=== PATIENT | male | born 1955 | race Caucasian/White ===

== ENCOUNTER 2019-09-17 09:43 | Inpatient (IN) | payer OTHER, SELFPAY ==
[2019-09-13 08:39] VITALS: BMI 33.4
[2019-09-17] VITALS (15 sets, daily range): BP systolic 100–132; BP diastolic 60–92; PULSE 66–103; RESP 9–19; TEMP 36.3–37.1; O2SAT 93–100; BMI 33.4
--- NOTE | 2019-09-17 | DI.RAD.S_ITS ---
PROCEDURE: XR LUMBAR SPINE 2-3V INDICATIONS: L4-5 TLIF TECHNIQUE: 2 intraoperative views of the lumbar spine were acquired. COMPARISON: Lumbar spine radiographs 07/12/2019. FINDINGS: Pedicle screws at L4 and L5 with intervertebral body spacer are in the expected location. IMPRESSION: Expected location of the L4-L5 pedicle screws. Dictated by: Matty Rodrigez M.D. on 09/17/2019 at 14:52 Approved by: Matty Rodrigez M.D. on 09/17/2019 at 14:53
[2019-09-17] MEDS: LACTATED RINGERS 1,000 ML 42 ML IV ×2 (10:27→13:53)
--- NOTE | 2019-09-17 11:27 | PM.PREOP ---
Pre-operative Note Interval Note History & Physical reviewed/Exam performed by Physician: Yes Changes to H&P: No
[2019-09-17] MEDS: CEFAZOLIN 2 GM/100 ML FROZ.PIGGY IV ×2 (12:04→20:40)
--- NOTE | 2019-09-17 12:52 | SUR.OPER ---
Prone on spine table, head in foam head support, padded chest and pelvic supports, gel pad at knees, lower legs supported by pillows; nipples, genitalia and toes free of pressure, arms secured on foam padded arm boards at <90 degrees abduction. Tape over blanket at thigh secured to table.
[2019-09-17] MEDS: BUPIVACAINE 0.25% W/ EPI 30 ML VIAL INJ (13:03)
[2019-09-17] MEDS: BUPIVACAINE LIPOSOME 266 MG/20 ML VIAL INJ (13:03)
[2019-09-17] MEDS: ACETAMINOPHEN IV 1,000 MG/100 ML VIAL 400 MG IV (13:56)
--- NOTE | 2019-09-17 14:33 | PM.OP.1 ---
Operative Date/Time/Diagnoses Date of procedure: 09/17/19 Time of procedure: 12:34 Pre-op diagnosis: 1. L3-4, L4-5 spinal stenosis 2. L4-5 epidural facet cyst 3. Lumbar radiculopathy Post-op diagnosis: same Procedure & Clinicians Procedure: 1. L4-5 Postero-lateral and posterior interbody fusion 2. L4-5 interbody cage placement. 3. L4-5 decompressive laminectomy with bilateral facetecomies 4. L4-5 Posterior non-segmental instrumentation 5. L3-4 hemilaminectomy 5. [place] of bone marrow from iliac crest 6. Utilization of microsurgical technique and operating microscope Same procedure as scheduled: Yes Indications: Patient has been having chronic back pain and worsening lumbar radiculopathy. Patient failed multiple conservative management with worsening pain weakness and numbness in her lower extremity. Patient has been having difficulty performing activity of daily living. After discussing risks benefits of treatment options, patient elected proceed with surgery. Surgeon: Keri Mcclain [employer] Educator: Kina Kamara Click Yes if Unassisted: No Anesthesia Type: General Operative Notes Closure Type: primary Specimen(s): none sent Prosthetic devices, grafts, tissues, transplants, or devices: Globus revolve screws, Rise cage Estimated Blood Loss (mL): 50 Blood products transfused: none Procedure in detail: Patient was seen in the preoperative area. Risks and benefits of the surgery was discussed with the patient. Informed consent was obtained from the patient and placed in the chart. Surgical site was marked. Patient was taken to the operative room. General anesthesia was administered. Prophylactic antibiotic was given to the patient less than 30 min before the incision was made. Patient was placed into a prone position on the Christiano table. Patient's back was then prepped and draped in the sterile fashion. Time-out was performed at this time. Using AP and lateral C-arm imaging the interval between L3-4, L4-5 was identified and marked on patient's back. A 2 inch incision 2 in from midline was made on the left side first. The fascia was incised in line with skin incision. Globus MARS retractors was placed inside the incision and docked onto the L4 lamina. Using microsurgical technique and operating microscope, a L4 laminectomy and L4-5 facetectomy was performed using a Kerrison rongeur. There was a large epidural cyst adherent to the dura at the L4-5 level causing significant compression of the thecal sac as well as the L4 nerve root on the right side. The cyst was completely resected. There is no compression of the neurologic structures after this decompression and cyst removal was completed. The disc space at L4-5 was identified. And a total diskectomy was performed at L4-5 level. The endplates were decorticated using a rasp and shaver. The total diskectomy and decortication was performed at L4-5 level in order to to accomplish a L4-5 fusion. The local bone from the laminectomy and facetectomy was saved for local bone grafting. After the total diskectomy and decortication was completed, DBM bone graft material was combined with local bone that was harvested earlier. At this time, a separate skin is incision was made over the iliac crest. A Jamshidi needle was inserted into the iliac crest through a separate skin incision. 5 cc of bone marrow aspiration was obtained through the separate skin incision using a Jamshidi needle from the iliac crest. The bone marrow aspiration was combined with local bone and the via cell bone grafting material. The bone grafting material was placed into the L4-5 interbody space along with a expandable cage. The cage was expanded to its maximum height using the torque limiting screwdriver. At this time the MARS retractor was redirected over the L3 lamina. Using microsurgical technique and operating microscope, a L3-4 heminectomy was performed using the Kerrison rongeur. The ligamentum flavum was also resected at the side of the hemilaminectomy for further decompression of the epidural space. At this time a mirror image incision was made on the right side. The fascia was incised in line with the skin incision. Globus MARS retractor was inserted and docked onto the L4-5 posterolateral gutter. Using the power drill, posterior-lateral decortication was performed at L4-5 level until bleeding cortical bone was identified. The remaining bone grafting material was placed into the L4-5 posterior lateral gutter he order to accomplish posterolateral fusion at the L4-5 level. Using the double C-arm technique, pedicle screws were placed into the L4 and L5 pedicles bilaterally. This was done by placing the Jamshidi needle into the pedicles, then placing the guidewires over the Jamshidi needle, and finally placing the cannulated screws over the guidewires bilaterally. After the pedicle screws were placed, 2 titanium rods was locked into the heads of the pedicle screws using locking caps and torque limiting screwdriver. After all the hardware was placed, and confirmed with AP and lateral C-arm imaging, the wound was then irrigated with sterile normal saline and packed with Ray-Floresita gauze for 3 min to accomplish hemostasis. After the gauze was removed the deep fascia was closed with #1 Vicryl suture. The subcutaneous layer was closed with 2-0 Vicryl. The skin was closed with skin august. Patient tolerated the procedure well. There were no complications. Complications: none Post-operative Condition: stable Disposition: PACU Plan for aftercare: Admit to inpatient hospital
[2019-09-17] MEDS: LORazepam 2 MG/ML INJ 0.5 MG IV ×2 (14:56→15:13)
[2019-09-17] MEDS: HYDROMORPHONE 2 MG INJ 0.5 MG IV ×4 (14:57→15:27)
[2019-09-17] MEDS: hydrOXYzine 50 MG/ML INJ 25 MG IM (14:58)
--- NOTE | 2019-09-17 15:30 | SUR.PHASEI ---
Pt arrived to PACU in considerable amount od discomfort, Dr. Ivey medicated pt with 2mg of Dilaudid in divided doses. I medicated pt with Dilaudid ativan and vistaril. Pt very fidgety with furrows brow till about this time. States he is finally feeling better.. O2 via nasal cannula added.
[2019-09-17] MEDS: SODIUM CHLORIDE 0.9% 1,000 ML 100 ML IV (16:33)
[2019-09-17] MEDS: NICOTINE 14 PATCH 14 MG TOP (16:40)
--- NOTE | 2019-09-17 16:49 | PT-IP ANOTE ---
Pt arrived AC unit at 1600. He stated he feels groggy and unable to move much at this point. Agreed to attempt PT eval for tomorrow morning.
[2019-09-17] MEDS: OXYCODONE IR 5 MG TABLET 10 MG PO ×2 (18:20→21:46)
--- NOTE | 2019-09-17 20:03 | PC.NURSE ---
Addendum entered by Mana Dahl R.N. 09/17/19 23:36: Pt states feels pretty good when standing up to void. Reinforced precautions for back surgery with no twisting/bending/lifting. Requires additional teaching on log rolling getting in and out of bed. Staff reinforce this. Taking diet well. CMS intact to BL LE's. BL foot pumps in place. Original Note: Pt to room 219 from PACU @ 1610 awake, alert, restless. Admits to pain 7/10 to back, but quickly falls asleep with snoring respirations when not stimulated by staff. 02 @ 2L per nc sats mid 90's per continuous pulse oximeter. Instructed in log rolling technique when awake. Pt awoke independently and took evening meal well. Assisted to stand @ bedside with reminder by staff of precautions with movement. Able to void without difficulty. Rates pain 7/10 and was given oxycodone as per emar. BL foot pumps in place. Intact sensation to BL LE's. Dressing to back with small amount shadowy drainage outlined. Pt prefers to wear own shorts and no gown and was assisted with clothing change.
[2019-09-17] MEDS: DOCUSATE 100 MG CAPSULE PO (20:40)
[2019-09-17] MEDS: SENNOSIDES 8.6 MG TABLET 17.2 MG PO (20:41)
[2019-09-17] MEDS: hydrOXYzine pamoate 25 MG CAPSULE PO (20:46)
[2019-09-17] MEDS: ACETAMINOPHEN 325 MG TABLET 650 MG PO (20:46)
[2019-09-18 00:50] VITALS: BP 108/56; PULSE 94; RESP 19; TEMP 36.7; O2SAT 99
[2019-09-18] MEDS: OXYCODONE IR 5 MG TABLET 10 MG PO ×3 (01:42→08:48)
[2019-09-18] MEDS: hydrOXYzine pamoate 25 MG CAPSULE PO ×2 (01:42→08:49)
[2019-09-18 04:00] VITALS: BP 118/80; PULSE 70; RESP 18; TEMP 36.9; O2SAT 99
[2019-09-18] MEDS: CEFAZOLIN 2 GM/100 ML FROZ.PIGGY IV (04:00)
[2019-09-18 08:00] VITALS: BP 107/66; PULSE 77; RESP 18; TEMP 37.1; O2SAT 99
[2019-09-18] MEDS: ROSUVASTATIN 10 MG TABLET 5 MG PO (08:49)
[2019-09-18] MEDS: DOCUSATE 100 MG CAPSULE PO (08:49)
[2019-09-18] MEDS: MULTIVITAMIN 1 TABLET 1 TAB PO (08:50)
[2019-09-18] MEDS: PANTOPRAZOLE 20 MG TABLET PO (08:50)
--- NOTE | 2019-09-18 09:10 | PT.IIE ---
Current Diagnoses Foot drop, right foot (09/17/19) Other spondylosis with radiculopathy, lumbar region (09/17/19) Spinal stenosis, lumbar region without neurogenic claudication (09/17/19) Intervertebral disc disorders with radiculopathy, lumbar region (09/17/19) Surgery Performed Operation Date: 09/17/19 11:45 Actual Procedures p L3-4 hemilaminectomy, L4-5 TLIF w/ posterior instrumentation - Keri Mcclain MD Surgical History (This Medical Record has been edited. Action required.) H/O vasectomy (Acute) History of colonoscopy (Acute) Hx of bariatric surgery (Acute 02/16/19) S/P LASIK surgery of both eyes (Acute ~2003) Medical History (This Medical Record has been edited. Action required.) Anxiety and depression (Acute ~2013) Arthritis (Acute) GERD (gastroesophageal reflux disease) (Acute) Gout (Acute) Hearing impaired (Acute) HLD (hyperlipidemia) (Acute) HTN (hypertension) (Acute) Sciatica (Acute) Skin cancer (Acute) Sleep apnea (Acute ~2017) Physical Therapy Inpatient Evaluation/Re-Eval M1 PT/OT-IP Prior Functional Status Start: 09/17/19 16:49 Freq: NEEDED Status: Discharge Protocol: Document 09/18/19 09:10 AB (Rec: 09/18/19 14:01 AB [id number]) Medical Review Prior Functional Status Medical History Reviewed Yes Diet/Fluid Consistency Regular,Thin Liquids Communication able to make needs known Mobility and Gait pt stated that he is indpeendent with all mobilities and ambulation without AD Activities of Daily Living and IADL's per OT's note: Completely independent for all ADl, IADl and driving. Social History Household Members family Living Arrangements House Number of Floors (Floors) One Floor Number of Stairs To Enter/Railing? no steps to enter Home Environment Standard Height Toilet,Walk in Shower Home Equipment Hand Held Shower,Grab Bars In Shower Additional Social History Comment pt has a tripod cane M1 PT/OT-IP Prior Functional Status Start: 09/18/19 10:06 Freq: NEEDED Status: Discharge Protocol: Document 09/18/19 10:06 [facility] (Rec: 09/18/19 10:25 [facility] [id number]) Medical Review Prior Functional Status Medical History Reviewed Yes Diet/Fluid Consistency Regular,Thin Liquids Communication Independent. Mobility and Gait Pt states did not use a device and was completely independent for all ambulation needs. Activities of Daily Living and IADL's Completely independent for all ADl, IADl and driving. Social History Household Members family Living Arrangements House Number of Floors (Floors) One Floor Number of Stairs To Enter/Railing? No steps to enter. Home Environment Standard Height Toilet,Walk in Shower Home Equipment Straight Cane Employment Status Retired M2 PT-IP Current Condition Start: 09/17/19 16:49 Freq: NEEDED Status: Discharge Protocol: Document 09/18/19 09:10 AB (Rec: 09/18/19 14:01 AB [id number]) Physical Therapy Current Condition Current Condition Evaluation Date 09/18/19 Treatment Diagnosis s/p L4-5 fusion/ lami; difficulty in walking Onset Date 09/17/19 Precautions Lumbar Precautions Log Roll,No Twisting,Limit Bending,Lifting Restriction of 10 lbs,Gait Belt above Incisional Area M3 PT-IP Subjective Start: 09/17/19 16:49 Freq: NEEDED Status: Discharge Protocol: Document 09/18/19 09:10 AB (Rec: 09/18/19 14:01 AB [id number]) Subjective Physical Therapy Visit Type Type Initial Evaluation Visit Start Time 09:10 Visit Stop Time 09:37 Total Visit Minutes 27 Number of NOTCHING PRESS OPERATOR Visits 0 Physical Therapy Visit Comments Patient Comments pt agreeable to do PT Therapy Pain Assessment Pain When Pain Assessed At Rest Pain Present Pain Present Pain Reported Location Lower Back Intensity 6 Scale Used Numeric (1 - 10) Pain Management Techniques Apply Cold,Timing of Activity with Medications M4 PT-IP Mobility and Gait Start: 09/17/19 16:49 Freq: NEEDED Status: Discharge Protocol: Document 09/18/19 09:10 AB (Rec: 09/18/19 14:01 AB [id number]) PT-Bed Mobility Assessment Rolling Type of Rolling Log Rolling Supine to Sit Supine to Sit Standby Assistance Sit to Supine Sit to Supine Standby Assistance Scooting Scooting to Edge of Bed Standby Assistance PT-Transfer Assessment Sit to and From Stand Sit to and from Stand Standby Assistance Equipment Transfer Assistive Device Gait Belt,Front Wheeled Walker Orthotic/Prosthetic Devices or Brace: No Transfers Transfer Destination Bed,Chair Transfer Technique pt ambulated using FWW Transfer Ability Level of Assist Standby Assistance,1 Person Assistance,Use of Upper Extremities Gait Assessment Gait Gait Assistance Required: Standby Assistance Distance (Feet) 125 Assistive Devices Assistive Device None,Gait Belt,Straight Cane, Front Wheeled Walker Orthotic/Prosthetic Devices or Brace: No Gait Deviations General Gait Pattern Antalgic Factors Limiting Gait Function Factors Limiting Gait Function Decreased Strength,Limited Range of Motion,Pain,Poor Balance Comments Gait Comments pt ambulated in room using FWW SBA ~ 20 ft ambulated in the hallway using SPC SBA ~ 125 ft. initially requiring cues for techniques and sequencing but able to complete without cues towards end of ambulation. ambulated in room without AD SBA to CGA ~ 15 ft PT-Balance Assessment Sitting Balance and Reactions Static Sitting Balance Ability Good Dynamic Sitting Balance Ability Good Standing Balance and Reactions Static Standing Balance Ability Good Dynamic Standing Balance Ability Fair Device Used without AD M5 PT-IP Objective Assessments Start: 09/17/19 16:49 Freq: NEEDED Status: Discharge Protocol: Document 09/18/19 09:10 (Rec: 09/18/19 14:01 [id number]) Orientation Orientation/Cognition Level of Alertness Alert Orientation Name,Age,Birthday,Month,Date, Year,Day of Week,Place, Situation Language Function Ability No Deficits Noted Safety Awareness Understands Safety Issues Memory Description No Deficits Noted Gross Range of Motion Lower Extremity ROM Assessment Within Functional Limits Strength Lower Extremity Strength Assessment Within Functional Limits Coordination Assessment Gross Coordination Gross Coordination WNL Sensation Assessment Sensation Gross Sensation WNL M6 PT-IP Treatment Start: 09/17/19 16:49 Freq: NEEDED Status: Discharge Protocol: Document 09/18/19 09:10 (Rec: 09/18/19 14:01 [id number]) Physical Therapy Treatment Education Education Provided Precautions,Weight Bearing Status,Post-Op Packet,Safety M7 PT-IP Assessment and Plan Start: 09/17/19 16:49 Freq: NEEDED Status: Discharge Protocol: Document 09/18/19 09:10 (Rec: 09/18/19 14:01 [id number]) PT Summary Assessment and Plan Potential Rehabilitation Potential Good Status of Condition at Evaluation Stable Summary Impairments Pain,ROM,Strength,Balance,Bed Mobility,Transfers,Gait, Activity Tolerance Assessment Summary pt requiring SBA with mobility and plans to go home with his mother to assist him. pt may go home when medically stable . Goals Bed Mobility Goal Independent Transfer Goal Independent Gait Goal Independent Gait Distance 300 Days to Meet Goals 3 Frequency of Treatment Frequency Of Treatment Twice a Day Treatment Plan Physical Therapy Treatment Plan Bed Mobility Training,Transfer Training,Gait Training, Therapeutic Exercise,Balance Retraining,Post Op Education, Discharge Planning,Hot or Cold Pack,Neuromuscular Re-ed, Coordination Retraining,Manual Therapy Recommendations To Nursing Amount of Assist Needed Standby Assistance Discharge Recommendations PT Discharge Recommendations Home with Assistance
--- NOTE | 2019-09-18 09:45 | OT.IP.EVAL ---
Current Diagnoses Foot drop, right foot (09/17/19) Other spondylosis with radiculopathy, lumbar region (09/17/19) Spinal stenosis, lumbar region without neurogenic claudication (09/17/19) Intervertebral disc disorders with radiculopathy, lumbar region (09/17/19) Surgery Performed Operation Date: 09/17/19 11:45 Actual Procedures p L3-4 hemilaminectomy, L4-5 TLIF w/ posterior instrumentation - Keri Mcclain MD Past Medical History (This Medical Record has been edited. Action required.) Anxiety and depression (Acute ~2013) Arthritis (Acute) GERD (gastroesophageal reflux disease) (Acute) Gout (Acute) Hearing impaired (Acute) HLD (hyperlipidemia) (Acute) HTN (hypertension) (Acute) Sciatica (Acute) Skin cancer (Acute) Sleep apnea (Acute ~2017) Surgical History (This Medical Record has been edited. Action required.) H/O vasectomy (Acute) History of colonoscopy (Acute) Hx of bariatric surgery (Acute 02/16/19) S/P LASIK surgery of both eyes (Acute ~2003) Occupational Therapy Inpatient Evaluation/Re-Eval M1 PT/OT-IP Prior Functional Status Start: 09/18/19 10:06 Freq: NEEDED Status: Active Protocol: Document 09/18/19 10:06 [facility] (Rec: 09/18/19 10:25 [facility] [id number]) Medical Review Prior Functional Status Medical History Reviewed Yes Diet/Fluid Consistency Regular,Thin Liquids Communication Independent. Mobility and Gait Pt states did not use a device and was completely independent for all ambulation needs. Activities of Daily Living and IADL's Completely independent for all ADl, IADl and driving. Social History Household Members family Living Arrangements House Number of Floors (Floors) One Floor Number of Stairs To Enter/Railing? No steps to enter. Home Environment Standard Height Toilet,Walk in Shower Home Equipment Straight Cane Employment Status Retired M2 OT-IP Current Condition Start: 09/18/19 10:06 Freq: Status: Active Protocol: Document 09/18/19 10:06 [facility] (Rec: 09/18/19 10:25 [facility] [id number]) Occupational Therapy Current Condition Current Condition Evaluation Date 09/18/19 Treatment Diagnosis S/P L3-4 hemilaminectomy, L4-5 TLIF post instr, decreased self care Diagnosis Onset Date 09/17/19 Post Operative Precautions Lumbar Precautions Log Roll,No Twisting,Limit Bending,Lifting Restriction of 10 lbs,Gait Belt above Incisional Area M3 OT- IP Subjective and Pain Start: 09/18/19 10:06 Freq: Status: Active Protocol: Document 09/18/19 10:06 [facility] (Rec: 09/18/19 10:25 [facility] [id number]) OT- Subjective Occupational Therapy Visit Type Type Initial Evaluation Visit Start Time 09:45 Visit Stop Time 08:59 Total Visit Minutes 14 Occupational Therapy Visit Comments Patient Comments Pt's mother present at the end of OT eval. Patient/Caregiver Goals Pt wanting to go home today. OT Pain Assessment Pain When Pain Assessed At Rest Pain Present Pain Present Denied Pain M4 OT- IP ADL's Start: 09/18/19 10:06 Freq: Status: Active Protocol: Document 09/18/19 10:06 [facility] (Rec: 09/18/19 10:25 [facility] [id number]) OT ADL-Grooming Comments OT Grooming Comments Educated to spit into a cup or bend at his hips to lean over the sink. OT ADL-Dressing General Eval Lower Body Dressing Ability Standby Assistance Comments OT Dressing Comments Pt able to comfortable cross his legs over to don/doff socks. Pt states wears Crocs at home. OT ADL-Toileting Comments OT Toileting Comments Pt not having to use the toilet. Had pt sit on the toilet to demonstrate how he wipes. Pt reaches from the front to reach back to wipe. Educated best to stand and wipe to decrease risk of bending/twisting his back. OT ADL-Bathing Comments OT Bathing Comments Pt not wanting to shower. Suggested a shower chair would be beneficial for safety especially in order to wash his legs,and long handle sponge issued to pt. Pt states mom can be present ot assist as needed. M5 OT- IP IADL's Start: 09/18/19 10:06 Freq: Status: Active Protocol: Document 09/18/19 10:06 [facility] (Rec: 09/18/19 10:25 [facility] [id number]) OT-Instrumental Activities of Daily Living Home Safety Awareness Home Safety Comments Edcuated to pt's mother to provide supervision for needs initially and assist especially for IADl needs. M6 OT- IP Functional Cognition Start: 09/18/19 10:06 Freq: Status: Active Protocol: Document 09/18/19 10:06 [facility] (Rec: 09/18/19 10:25 [facility] [id number]) Cognitive Factors Limiting Selfcare Function Cognitive Ability Level of Alertness Alert Patient Orientation Name,Place,Situation Attention Span Ability Capable of Focused Attention, Capable of Sustained Attention Ability to Follow Commands Able to Follow One Step Commands Safety Awareness Decreased Ability to Apply Precautions,Underestimates Need for Assistance Cognitive Comments Cognitive Assessment Comments Pt able to state all precautions however needing cues to incorporate back precautions for needs. Pt twisting by reach over to grab bar with both hands to stand, educated at home to use right arm on the counter and other hand to push up on his left leg to stand. OT- Vision and Hearing OT- Hearing Assessment OT- Hearing Assessment WFL OT- Vision Assessment Visual Acuity WFL M7 OT- IP Mobility and Balance Start: 09/18/19 10:06 Freq: Status: Active Protocol: Document 09/18/19 10:06 [facility] (Rec: 09/18/19 10:25 [facility] [id number]) OT-Transfer Assessment Sit to and From Stand Sit to and from Stand Standby Assistance Transfers Transfer Ability Standby Assistance Technique Transfer Destination Chair,Toilet Transfer Technique Stand Step Pivot Devices Transfer Assistive Devices None,Gait Belt Comments Mobility Comments Pt already sitting in the recliner and dressed. Pt able to stand with SBA, a little unsteady on his feet but compensates with wide base of support. OT- Balance Assessment Sitting Balance and Reactions Static Sitting Balance Ability Normal Dynamic Sitting Balance Ability Normal Standing Balance and Reactions Static Standing Balance Ability Good M8 OT- IP Objective Assessments Start: 09/18/19 10:06 Freq: Status: Active Protocol: Document 09/18/19 10:06 [facility] (Rec: 09/18/19 10:25 [facility] [id number]) OT Gross Range of Motion Upper Extremity Range of Motion Assessment Within Functional Limits OT Strength Upper Extremity Strength Assessment Within Functional Limits M9 OT- IP Assessment and Plan Start: 09/18/19 10:06 Freq: Status: Active Protocol: Document 09/18/19 10:06 [facility] (Rec: 09/18/19 10:25 [facility] [id number]) OT Summary Assessment and Plan Potential Rehabilitation Potential Good Analytic Complexity at Evaluation Low Summary OT Impairments Balance,Dressing,Toileting, Bathing Progress Towards Goals Progressing Toward Goals Assessment Summary Pt low complexity and main barrier are decreased safety awareness and needing cues to be able to incorporate back precautions for Adl and functional mobility needs. Pt would benefit from continued practice of back precautions for ADl needs, however insistent on going home home today with his mother. Goals Dressing Goal Independent Toileting Goal Independent Bathing Goal Standby Assistance Toilet Transfer Goal Independent Shower Transfer Goal Standby Assistance Patient/Caregiver Education Goal Demonstrate Post-Op Precautions,Caregiver Independent Assisting Patient Days to Meet Goals 2 Frequency of Treatment Frequency Of Treatment Once a Day Treatment Plan OT Treatment Plan ADL Training,Functional Cognition Training,Functional Mobility,Patient/Family Education,Discharge Planning Other Treatment Recommendations and Next Education and practice of Treatment Focus incorporation of back precautions for Adl and functional mobility needs. Discharge Recommendations OT Discharge Recommendations Home with Assistance Home Equipment Needs Shower chair
--- NOTE | 2019-09-18 11:26 | PC.NURSE ---
Discharge: Pt feels ready to d/c. Has seen PT/OT and given their final instructions. Seen by HOLLI, received her instructions, have reviewed log rolling and his blt's. His mother is here and present for teaching. po pain meds effective. Did review w/pt and his mother that he had received exparel in OR and he may have more pain tomorrow or the next day then he has had today. Discussed pain med regime. Vds w/out diff and tolerates diet w/out problems. Changed back dressing to coversite and he was given an extra dressing to take with him. Reviewed wound care instructions. His mother feels comfortable changing dressing if it is needed. Discussed use of ice packs. Reviewed discharge packet, he understands his weight limit and lami precautions. Questions answered. Pt d/c home via auto w/his mother.
--- NOTE | 2019-09-18 12:39 | CM.DANOTE ---
DCP: Case received, EMR reviewed. Patient had already went home, but was able to obtain some information from Mary Jim, TERRY, taking care of patient. Left a message with patient's mother to call back, for she will be helping him at home, she is a retired RN. DCP assessment/template completed with information currently available. Patient is a 63 year old male who admitted yesterday morning to the care of the orthopedic team. Payer: confirmed: [facility]. Patient came to the hospital for a surgical procedure. He had L4-5 posteo-lateral fusion. Patient has had history of osteoarthritis, in his lumbar area. Patient resides in [facility]. Was unable to speak to patient regarding baseline information and who his primary MD is, for he had already left. His mother, Lign, picked him up. She is a retired RN, and will be staying with him at his home. P: Patient discharged home today. Rosa Elena Cody RN/Maintenance Supervisor 2Nd Shift
== END 2019-09-18 11:15 | disposition home or self-care (01) | DRG 455 ==
PROVIDERS: Admitting Provider Orthopaedic Surgery Orthopaedic Surgery of the Spine; Visit Provider Orthopaedic Surgery Orthopaedic Surgery of the Spine
PROC: 0SG00AJ Fusion of Lumbar Vertebral Joint with Interbody Fusion Device, Posterior Approach, Anterior Column, Open Approach (ICD-10-PCS; principal; 2019-09-17 11:45)
DX: M48.061 Spinal stenosis, lumbar region without neurogenic claudication (principal); M47.26 Other spondylosis with radiculopathy, lumbar region; M51.26 Other intervertebral disc displacement, lumbar region; M21.371 Foot drop, right foot; I10 Essential (primary) hypertension; E78.5 Hyperlipidemia, unspecified; K21.9 Gastro-esophageal reflux disease without esophagitis; F17.210 Nicotine dependence, cigarettes, uncomplicated
CPT/HCPCS: 72100; 76000; 97161; 97165; C1776; C9290; J0131; J0330; J0690; J1100; J1170; J2060; J2250; J2405; J2704; J3010; J3410